=== PATIENT | male | born 1975 | race Caucasian/White ===

== ENCOUNTER 2024-06-22 00:10 | Emergency (ER) | payer MEDICAID ==
[~2024-06-22] VITALS: Ht 185.4 cm; Wt 92.0 kg
[2024-06-22 00:24] VITALS: BP 122/70; RESP 16; TEMP 98.6; O2SAT 98
[2024-06-22 00:30] VITALS: PULSE 80; O2SAT 100
[2024-06-22] MEDS ORDERED: LIDOCAINE HCL/PF 1% 10 MG/ML 5ML VIAL INFIL ONE (03:30)
[2024-06-22] MEDS ORDERED: BACITRACIN ZINC OINT UDPKT TOP ONE (03:30)
== END 2024-06-22 03:58 | disposition left against medical advice (07) ==
LOC: ER 00:20
DX: S61.431A Puncture wound without foreign body of right hand, initial encounter (principal); E11.9 Type 2 diabetes mellitus without complications; Z85.9 Personal history of malignant neoplasm, unspecified; X58.XXXA Exposure to other specified factors, initial encounter; Y93.89 Activity, other specified; Y92.89 Other specified places as the place of occurrence of the external cause; Y99.8 Other external cause status
CPT/HCPCS: 99281